=== PATIENT | female | born 1970 | race Caucasian/White ===

== ENCOUNTER → 2020-05-15 10:12 | Outpatient (CLI) | payer BC, SELFPAY ==
--- NOTE | 2020-05-15 10:16 | MM_ITS ---
PROCEDURE: MM DIG SCREENING MAMM BI W/CAD Digital Breast Tomosynthesis Included CLINICAL INDICATION: SCREENING There is no personal or family history of breast cancer. COMPARISON: MG DMSB DIGITAL MAMM-SCREEN BILATERAL from 06/26/2011 TECHNIQUE: Standard CC and MLO images and 3D Tomosynthesis was obtained. R2 CAD reviewed. FINDINGS: The breasts are composed primarily of fat with minimal scattered fibroglandular densities throughout each breast. There are few benign-appearing microcalcifications right breast. Fatty replacement breast parenchyma since the previous study 06/26/2011. There is no suspicious lesion and no suspicious microcalcifications. IMPRESSION: Fatty type breast parenchyma with no suspicious lesions seen BI-RAD Category: 2 Benign Finding(s) FOLLOW-UP: 1YR 1 Year Follow-up (A letter has been sent to the patient regarding results of the study.) Dictated by: Dr. Anuj Spap MD 05/18/2020 08:34 Dr. Anuj Sapp MD in [place] 05/18/2020 08:34
--- NOTE | 2020-05-15 10:16 | XR_ITS ---
PROCEDURE: XR DEXA AXIAL SKELETON CLINICAL HISTORY: POST MENOPAUSAL COMPARISON: No exams were available for comparison FINDINGS: The right hip BMD is 0.610 with a T-score of -2.2. The left hip BMD is 0.490 with a T-score of -3.2. The lumbar spine BMD is 0.771 with a T-score of -2.5. IMPRESSION: This patient is considered osteoporotic according to the World Health Organization criteria. Fracture risk is high. Treatment is advised. Based on these results a follow-up exam is recommended in 1 year. Dictated by: Pasha Beltran MD 05/16/2020 06:19 Pasha Beltran MD in [place] 05/16/2020 06:19
--- NOTE | 2020-05-15 10:17 | XR_ITS ---
PROCEDURE: XR CERVICAL SPINE 5V CLINICAL INDICATION: CERVICALGIA COMPARISON: No exams were available for comparison FINDINGS: There is normal curvature and alignment. C1 through C7 appear intact. Minor anterior osteophytic spurring is seen the lower cervical spine. There is no significant disc space narrowing. Oblique films show normal neural foramina bilaterally. The prevertebral soft tissues are normal and the odontoid is normal. IMPRESSION: Essentially unremarkable cervical spine for the patient's age, no significant degenerate change identified Dictated by: Dr. Anuj Sapp MD 05/15/2020 12:04 Dr. Anuj Sapp MD in [place] 05/15/2020 12:04
== END ==
PROVIDERS: PCP Internal Medicine Adolescent Medicine; Visit Provider Internal Medicine Adolescent Medicine
DX: Z12.31 Encounter for screening mammogram for malignant neoplasm of breast (principal); Z78.0 Asymptomatic menopausal state; M54.2 Cervicalgia
CPT/HCPCS: 72050; 77063; 77067; 77080

== ENCOUNTER → 2020-06-13 17:44 | Outpatient (CLI) | payer BC, SELFPAY ==
[2020-06-13 19:44] LABS: Coronavirus 19 IgG Antibody Negative (Negative); Coronavirus 19 IgM Antibody Negative (Negative)
== END ==
PROVIDERS: Visit Provider Internal Medicine Gastroenterology
DX: Z01.812 Encounter for preprocedural laboratory examination (principal); Z11.52 Encounter for screening for COVID-19; Z12.11 Encounter for screening for malignant neoplasm of colon
CPT/HCPCS: 36415; 86328

== ENCOUNTER 2020-06-15 09:30 | Day surgery (SDC) | payer BC, SELFPAY ==
[2020-06-07 13:31] VITALS: BMI 37.9
[2020-06-15] VITALS (12 sets, daily range): BP systolic 141–211; BP diastolic 80–136; PULSE 86–108; RESP 16–18; TEMP 36.1–36.7; O2SAT 91–100
--- NOTE | 2020-06-15 10:03 | HMH.ANESCL ---
[facility] Anesthesia Checklist - Structural Data Admitted From: Home Planned Operative Procedure/s: Colonoscopy Consent for Planned Operative Procedure(s) Verified: Yes - NPO Status Verified Time NPO: 00:00 - Airway Assessment Dentition: Dentures-good fit - Neurological Assessment Level of Consciousness: Awake, Alert Hx Seizures: No Numbness or tingling in extremities: No - Anesthesia Plan Anesthesia Risk discussed: Yes Anesthesia Plan: Verified ASA Class: III Anesthesia Type: MAC [facility] History I have reviewed the patient's past medical history: Yes Medical History: Reports:: Anxiety, Depression Denies:: Cancer, Diabetes Mellitus Type 1, Diabetes Mellitus Type 2, MRSA, Seizures *Have you ever received a pneumonia vaccine?: No *Have you received a flu vaccine this season?: No Other Medical History: Reports: Other Comment:: Lupus Anesthesia experience/problems:: Hard to wake up Laterality Cases: Bilateral: Tonsillectomy Amputation: No Fractures: Yes (ANKLE L) - *Social History Last grade of school completed: High school graduate Alcohol Intake: never Substance Use Type: denies use *Occupational Status:: unemployed *Travel in the last 8 weeks: None Family Hx:: Unable to obtain
--- NOTE | 2020-06-15 10:11 | P.PCN_ITS ---
[facility] Procedure Note Procedure Note:: Colonoscopy Procedure Report: Colonoscopy with cold snare polypectomy Endoscopist: Oskar Vilchis II, MD Referring physician: Graeme Bennett M.D. Date of Procedure: June 15, 2020 Equipment: Olympus 190 variable stiffness pediatric colonoscope Sedation: MAC sedation Indication: Mrs. Nolan is a 49-year-old female who is here for screening colonoscopy. She reports no abdominal pain, weight loss, change in her bowel habits or rectal bleeding. She reports no family history of colon cancer. She does state that this is her fourth colonoscopy. She was diagnosed with colitis years ago. Her last colonoscopy was 5 to 10 years ago. She does report some chronic constipation. Procedure: Prior to the procedure, a history and physical exam was performed, and patient's medications and allergies were reviewed. The risks, benefits and alternatives of the sedation and procedure were discussed with the patient. All questions were answered and informed consent was obtained. The patient was brought to the procedure room. Patient identification and proposed procedure were verified by the physician and the nurse. The patient was placed in a left lateral decubitus position and the scope was passed under direct vision. Throughout the procedure, the patient's blood pressure, pulse, and oxygen saturations were monitored continuously. The colonoscopy was accomplished without difficulty. The patient tolerated the procedure well. Findings: On digital rectal examination there was normal rectal tone. There were no external hemorrhoids. The colonoscope was introduced through the anal canal to the rectum and advanced to the cecum. The ileocecal valve and appendiceal orifice were identified. The scope was advanced a short distance into the ileum which appeared grossly normal. The scope was then withdrawn into the colon. The cecum, ascending and transverse colon and mucosa were grossly normal. There was a 6 mm polyp in the descending colon removed via cold snare polypectomy. There were very mildly scattered diverticuli throughout the descending and sigmoid colon (LEFT colon). The rectum itself was normal. Upon retroflexion within the rectum there were grade 1 internal hemorrhoids. The preparation was excellent throughout with [place] Preparation Score of 9. The cecal time was 12 minutes. Impression: 1. Descending colon polyp (6 mm) 2. Mild left-sided diverticulosis 3. Small grade 1 internal hemorrhoids Plan: I will follow up the polyp pathology and recommend repeat colonoscopy again in 7 years based upon the polyp histology. I would encourage a fiber bowel regimen on a long-term daily maintenance basis.
--- NOTE | 2020-06-15 11:30 | SUR.PHASEII ---
DR CAROLINA AT BEDSIDE AND MADE AWARE OF ELEVATED BP.
== END 2020-06-15 12:00 | disposition home or self-care (01) ==
LOC: OUTP 09:31
PROVIDERS: PCP Internal Medicine Adolescent Medicine; Visit Provider Internal Medicine Gastroenterology
PROC: 0DJD8ZZ Inspection of Lower Intestinal Tract, Via Natural or Artificial Opening Endoscopic (ICD-10-PCS; CPT 45378; principal; 2020-06-15 10:30)
DX: Z12.11 Encounter for screening for malignant neoplasm of colon (principal); K63.5 Polyp of colon; K57.30 Diverticulosis of large intestine without perforation or abscess without bleeding; K64.0 First degree hemorrhoids; F41.9 Anxiety disorder, unspecified; F32.9 Major depressive disorder, single episode, unspecified; Z88.0 Allergy status to penicillin; Z88.6 Allergy status to analgesic agent; Z79.899 Other long term (current) drug therapy
CPT/HCPCS: 45385

== ENCOUNTER → 2020-12-24 11:30 | Outpatient (CLI) | payer BC, SELFPAY | LOC: LAB 12-25 11:30 → LAB.DROPOF 12-25 11:31 | PROVIDERS: Visit Provider Nurse Practitioner Family | DX: R30.0 Dysuria (principal); B96.20 Unspecified Escherichia coli [E. coli] as the cause of diseases classified elsewhere | CPT/HCPCS: 87086; 87088; 87186 ==

== ENCOUNTER 2024-06-10 13:46 | Outpatient (RCR) | payer OTHER, SELFPAY ==
--- NOTE | 2024-06-10 15:23 | HMH.PTOPEV ---
PT Outpatient Evaluation Rehab PT Outpatient Evaluation Start: 06/10/24 13:51 Freq: Status: Active Protocol: Document 06/10/24 13:52 DELL (Rec: 06/10/24 15:22 DELL [id number]) E-signed By George Farris, PT Outpatient Therapy Subjective History Subjective History Pt is a 53 yof who is referred to [facility] outpatient PT with bilateral leg pain. The pt reports that her pain has been ongoing for years and has been unchanging. The pt reports that at the end of the day her lower legs and feet will be swollen and red. She reports that she has not had an official diagnosis for what is going on with her legs. Reports that her balance is also not good. Reports that she has had at least 6 falls in the past 6 months. Reports difficulty with walking, standing for longer periods, gardening. Pt reports that her legs are not swollen at evaluation today. PMH: Fibromyalgia, GERD, Insomnia Occupation: Unemployed New diagnosis of cancer in past 12 No months? Chief Complaint Pain,Swelling Symptom Type Ache,Burning Symptoms Relieved By Nothing Symptoms Aggravated By Standing,Bending/Stooping, Walking,Lifting Prior Functional Limitations None Current Functional Limitations Lifting,Housework,Dressing, Desk Work/Reading,Driving, Standing,Squatting,Walking, Stairs,Balance Symptom Description Constant and Continuous Level of pain today (0-10) 6 Pain scale - at its best (0-10) 6 Pain scale - at its worst (0-10) 10 Hip/Knee Eval Gait Observation General Gait Pattern Observation Antalgic Gait,Wide Based Gait, Decrease Stride Lngth (R), Decrease Stride Lngth (L) Palpation Tenderness bilateral Knee Palpation Finding None/Normal Hip Palpation Findings None/Normal MMT Hip Flexion Strength Grade 2 Poor Hip Abduction Strength Grade 2 Poor Hip Adduction Strength Grade 2 Poor Hip Extension Strength Grade 2 Poor Knee Extension Strength Grade 2 Poor Knee Flexion Strength Grade 2 Poor Lower Extremity Functional Index Activities Today, do you or would you have any difficulty at all with: a.Any of your usual work, housework or Quite a bit of difficulty school activities b. Your usual hobbies, recreational or Quite a bit of difficulty sporting activities c. Getting into or out of the bath Moderate difficulty d. Walking between rooms Moderate difficulty e. Putting on your shoes or socks Quite a bit of difficulty f. Squatting Extreme difficulty or unable to perform activity g. Lifting an object, like a bag of Moderate difficulty groceries from the floor h. Performing light activities around Moderate difficulty your home i. Performing heavy activities around Extreme difficulty or unable your home to perform activity j. Getting into or out of a car Moderate difficulty k. Walking 2 blocks Extreme difficulty or unable to perform activity l. Walking a mile Extreme difficulty or unable to perform activity m. Going up or down 10 stairs (about 1 Extreme difficulty or unable flight of stairs) to perform activity n. Standing for 1 hour Extreme difficulty or unable to perform activity o. Sitting for 1 hour Moderate difficulty p. Running on even ground Extreme difficulty or unable to perform activity q. Running on uneven ground Extreme difficulty or unable to perform activity r. Making sharp turns while running fast Extreme difficulty or unable to perform activity s. Hopping Extreme difficulty or unable to perform activity t. Rolling over in bed Moderate difficulty LEFI Score Lower Extremity Functional Index Score 17 Miscellaneous Dx PT Eval Objective Objective TS: Unable to initiate. Outpatient Therapy Assessment Impairments Problems/Impairmments Impaired Strength,Impaired Gait Pattern,Impaired Walking, Impaired Standing,Impaired Lifting,Impaired Household Care,Impaired Stair Climbing, Impaired Balance,Impaired TUG Time,Subjective C/O Pain Prognosis Rehab Potential Fair Clinical Impression Consistent with Diagnosis Yes Additional details: LE pain and weakness due to unknown reasons. Pt also presents with impaired balance and LE strength. Skilled PT is indicated for this pt. Short Term Goals Number of Weeks 4 Increase Strength 3/5 to B LEs Increase Ability to Stand Yes: 20 minutes without increasing pain Improve Ability For Household Care Yes: Light cooking/cleaning without increasing pain Improve Balance Yes: TS on even surface for 30s Improve LEFI Score Yes: >23 Decrease Subjective C/O Pain Yes: 6/10 with above assessment Patient to be Ind w/ HEP Yes Correction Goals Number of Weeks 8 Increase Strength Yes: 4/5 to B LEs Improve Gait Pattern without Assistive Yes: Normalized gait mechanics Device Increase Ability to Stand Yes: 1 hour without increasing symptoms Improve Balance Yes: TS on uneven surface for 30s Improve LEFI Score Yes: >33 Decrease Subjective C/O Pain Yes: 2-3/10 with above assessment Patient to be Ind w/ Advanced HEP Yes Outpatient Therapy Plan of Care Treatment Plan May Include Therapeutic Exercise Including Home Yes Exercise Program Manual Therapy Techniques Yes Neuromuscular Re-education Yes Therapeutic Activities to Return to Yes Previous Functional/Work Level Gait Training Yes ADL/Self Care Education Yes Thermal Modalities Yes Electrical Stimulation Yes Manual Lymphatic Drainage Yes Eval/Re-Eval Yes Frequency Times per week 1-2 Duration Number of Weeks 8 Addendums This patient is a candidate for social No or vocational rehab? Patient/Guardian verbally acknowledges Yes understanding of treatment program and consents to further treatment? Patient/Guardian verbally acknowledges Yes understanding of diagnosis, prognosis and goals for treatment? Eval Complexity PT Charges 54798 - High Complexity Shoulder/Elbow Eval Shoulder Objective Measurements Elbow Objective Measurements PHYSICIAN CERTIFICATION: I certify the specified therapy services for Di Nolan are required, authorized, and reviewed every 30 days.
== END 2024-06-10 23:59 | disposition home or self-care (01) ==
LOC: PT 13:46
PROVIDERS: Visit Provider Internal Medicine Adolescent Medicine
DX: M79.604 Pain in right leg (principal)
CPT/HCPCS: 97163